=== PATIENT | female | born 2000 | race Caucasian/White ===

== ENCOUNTER 2022-05-26 02:42 | Emergency (ER) | payer OTHER ==
[2022-05-26] MEDS ORDERED: ACETAMINOPHEN 325 MG TABLET ONE (02:57)
[2022-05-26] MEDS ORDERED: NA CHLORIDE 0.9% 0 ML ONE (04:30)
--- NOTE | 2022-05-26 04:50 | ER ---
Nurse's Notes [facility] Name: Eloisa Farah Age: 21 yrs Sex: Female : 2000 Arrival Date: 05/26/2022 Time: 02:45 Bed 8 Private MD: Diagnosis: Viral infection, unspecified;Fever, unspecified;Diarrhea, unspecified Presentation: 05/26 03:12 Chief complaint: Patient states: she has had chills, fever, headache and diarrhea x 4 bb days with a "high heart rate". Coronavirus screen: chills, diarrhea, fever, headache, Client presents with at least one sign or symptom that may indicate coronavirus-19. Ebola Screen: No symptoms or risks identified at this time. Initial Sepsis Screen: Does the patient meet any 2 criteria? No. Patient's initial sepsis screen is negative. Does the patient have a suspected source of infection? No. Patient's initial sepsis screen is negative. Risk Assessment: Do you want to hurt yourself or someone else? Patient reports no desire to harm self or others. Onset of symptoms was May 22, 2022. 03:12 Method Of Arrival: Ambulatory bb 03:12 Acuity: ELIS 4 bb Triage Assessment: 03:14 Headache History: The patient has had previous headaches. General: Appears in no bb apparent distress. Behavior is calm, cooperative. Pain: Pain currently is 7 out of 10 on a pain scale. Pain began 4 days ago Also complains of no other associated symptoms. Neuro: Level of Consciousness is awake, alert, obeys commands, Oriented to person, place, time, situation. Cardiovascular: Capillary refill < 3 seconds Patient's skin is warm and dry. Respiratory: Respiratory effort is even, unlabored, Respiratory pattern is regular. GI: Reports diarrhea. Derm: Skin is pink, warm \\T\\ dry. Musculoskeletal: Circulation, motion, and sensation intact. 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 - Social history:: Smoking status: Patient denies any tobacco usage or history of. Screenin:15 Abuse screen: Denies threats or abuse. Nutritional screening: No deficits noted. bb Tuberculosis screening: Fall Risk None identified. Assessment: 03:15 Reassessment: No changes from previously documented assessment. see triage assessment. bb 04:33 Reassessment: Patient is alert, oriented x 3, equal unlabored respirations, skin bb warm/dry/pink. Vital Signs: 03:12 BP 115 / 72; Pulse 121; Resp 16 S; Temp 100.5(O); Pulse Ox 96% on R/A; Weight 56.25 kg bb (R); Height 5 ft. 1 in. (154.94 cm) (R); Pain 0/10; 04:33 BP 105 / 62; Pulse 90; Resp 16 S; Temp 98.4(O); Pulse Ox 98% on R/A; bb 03:12 Body Mass Index 23.43 (56.25 kg, 154.94 cm) bb ED Course: 02:45 Patient arrived in ED. ja2 03:12 Staci Holden, RN is Primary Nurse. bb 03:14 Triage completed. bb 03:14 Arm band placed on Patient placed in an exam room, on a stretcher, on pulse oximetry. bb Family accompanied patient. 03:15 Patient has correct armband on for positive identification. Call light in reach. Adult bb w/ patient. 03:17 Pilo Patino MD is Attending Physician. kdr 04:25 Primary Nurse role handed off by Staci Holden, RN tw5 04:25 Traci Valencia is Primary Nurse. tw5 05:08 No provider procedures requiring assistance completed. Patient did not have IV access as6 during this emergency room visit. Administered Medications: 02:58 Drug: Tylenol 650 mg Route: PO; bb 05:08 Follow up: Response: No adverse reaction as6 04:50 Not Given (Physician Discretion): NS 0.9% 1000 ml IV at 1 bolus Per protocol; 1000 mL as6 bolus 04:50 Not Given (Physician Discretion): NS 0.9% 1000 ml IV at 125 ml/hr continuous as6 05:01 Drug: Motrin (ibuprofen) 600 mg Route: PO; as6 05:08 Follow up: Response: No adverse reaction as6 Medication: 03:15 VIS not applicable for this client. bb Outcome: 04:49 Discharge ordered by . kdr 05:09 Discharged to home ambulatory. as6 05:09 Condition: stable 05:09 Discharge instructions given to patient, Instructed on discharge instructions, follow up and referral plans. medication usage, Demonstrated understanding of instructions, follow-up care, medications, Prescriptions given X 1. 05:09 Patient left the ED. as6 Signatures: Pilo Patino MD MD kdr Ballard, Brenda, RN RN Yuki Sandoval Traci Mcclendon [facility] Brandon Chopra RN RN as6 Corrections: (The following items were deleted from the chart) 03:15 03:14 Allergies: No Known Allergies; samantha singh 03:15 03:14 Home Meds: None; samantha singh
--- NOTE | 2022-05-26 04:50 | EDPHYS ---
Physician Documentation [facility] Name: Eloisa Farah Age: 21 yrs Sex: Female : 2000 Arrival Date: 05/26/2022 Time: 02:45 Bed 8 Private MD: ED Physician Pilo Patino HPI: 05/26 18:07 This 21 yrs old Female presents to ER via Ambulatory with complaints of Fever, High kdr Blood Pressure, Headache, Diarrhea. 18:08 Patient states that she has had fever and chills and a headache with diarrhea for the kdr last 4 days. She also feels that her heart rate has been elevated. On initial evaluation the patient is nontoxic-appearing. It was noted that her initial heart rate was 120. After the patient had been in her room in bed for a while her heart rate decreased to 85. That was without any specific intervention. Patient was subsequently moved to a different room and after ambulating there her heart rate remained stable.. Onset: The symptoms/episode began/occurred gradually, 4 day(s) ago. Severity of symptoms: At their worst the symptoms were mild in the emergency department the symptoms are unchanged. The patient has not experienced similar symptoms in the past. The patient has not recently seen a physician. Patient had called the nurse helpline and had been advised to come to the ED for possible sepsis test. Patient was focused on getting that specific test.. 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 - Social history:: Smoking status: Patient denies any tobacco usage or history of. ROS: 18:08 Constitutional: Negative for weight loss. kdr 18:08 Eyes: Negative for injury, pain, redness, and discharge, Neck: Negative for injury, pain, and swelling, Cardiovascular: Negative for chest pain, and edema. 18:08 Respiratory: Negative for shortness of breath, cough, wheezing, and pleuritic chest pain, Abdomen/GI: Negative for abdominal pain, nausea, vomiting, diarrhea, and constipation, Back: Negative for injury and pain, : Negative for injury, bleeding, discharge, and swelling, MS/Extremity: Negative for injury and deformity, Skin: Negative for injury, rash, and discoloration, Neuro: Negative for headache, weakness, numbness, tingling, and seizure activity. Psych: Negative for depression, anxiety, suicide ideation, homicidal ideation, and hallucinations, Allergy/Immunology: Negative for hives, rash, and allergies, Endocrine: Negative for neck swelling, polydipsia, polyuria, polyphagia, and marked weight changes, Hematologic/Lymphatic: Negative for swollen nodes, abnormal bleeding, and unusual bruising. 18:08 Constitutional: Positive for body aches, fatigue, fever, malaise, Negative for chills, weight loss. 18:08 Cardiovascular: Positive for palpitations, Negative for chest pain, edema, orthopnea, paroxysmal nocturnal dyspnea. Exam: 18:08 Constitutional: This is a well developed, well nourished patient who is awake, alert, kdr and in no acute distress. Head/Face: Normocephalic, atraumatic. Eyes: Pupils equal round and reactive to light, extra-ocular motions intact. Lids and lashes normal. Conjunctiva and sclera are non-icteric and not injected. Cornea within normal limits. Periorbital areas with no swelling, redness, or edema. Neck: Trachea midline, no thyromegaly or masses palpated, and no cervical lymphadenopathy. Supple, full range of motion without nuchal rigidity, or vertebral point tenderness. No Meningismus. Chest/axilla: Normal chest wall appearance and motion. Nontender with no deformity. No lesions are appreciated. Cardiovascular: Regular rate and rhythm with a normal S1 and S2. No gallops, murmurs, or rubs. Normal PMI, no JVD. No pulse deficits. Respiratory: Lungs have equal breath sounds bilaterally, clear to auscultation and percussion. No rales, rhonchi or wheezes noted. No increased work of breathing, no retractions or nasal flaring. Abdomen/GI: Soft, non-tender, with normal bowel sounds. No distension or tympany. No guarding or rebound. No evidence of tenderness throughout. Back: No spinal tenderness. No costovertebral tenderness. Full range of motion. Skin: Warm, dry with normal turgor. Normal color with no rashes, no lesions, and no evidence of cellulitis. MS/ Extremity: Pulses equal, no cyanosis. Neurovascular intact. Full, normal range of motion. Neuro: Awake and alert, GCS 15, oriented to person, place, time, and situation. Cranial nerves II-XII grossly intact. Motor strength 5/5 in all extremities. Sensory grossly intact. Cerebellar exam normal. Normal gait. Psych: Awake, alert, with orientation to person, place and time. Behavior, mood, and affect are within normal limits. Vital Signs: 03:12 BP 115 / 72; Pulse 121; Resp 16 S; Temp 100.5(O); Pulse Ox 96% on R/A; Weight 56.25 kg bb (R); Height 5 ft. 1 in. (154.94 cm) (R); Pain 0/10; 04:33 BP 105 / 62; Pulse 90; Resp 16 S; Temp 98.4(O); Pulse Ox 98% on R/A; bb 03:12 Body Mass Index 23.43 (56.25 kg, 154.94 cm) bb MDM: 04:49 Patient medically screened. kdr 18:08 Data reviewed: vital signs, nurses notes, lab test result(s). Counseling: I had a kdr detailed discussion with the patient and/or guardian regarding: the historical points, exam findings, and any diagnostic results supporting the discharge/admit diagnosis, lab results, the need for outpatient follow up. ED course: Patient continues to be concerned about possible sepsis. I educated her as to the signs and symptoms specifically of sepsis as well as the difference between her current presentation and typical septic presentation. She was nontoxic and not requiring any acute intervention in the ED.. 05/26 02:58 Order name: Flu; Complete Time: 04:09 bb 05/26 02:58 Order name: COVID-19 SARS RT PCR (Document "Date of Onset" if Symptomatic); Complete bb Time: 04:09 Administered Medications: :58 Drug: Tylenol 650 mg Route: PO; bb 05:08 Follow up: Response: No adverse reaction as6 04:50 Not Given (Physician Discretion): NS 0.9% 1000 ml IV at 1 bolus Per protocol; 1000 mL as6 bolus 04:50 Not Given (Physician Discretion): NS 0.9% 1000 ml IV at 125 ml/hr continuous as6 05:01 Drug: Motrin (ibuprofen) 600 mg Route: PO; as6 05:08 Follow up: Response: No adverse reaction as6 Disposition Summary: 05/26/22 04:49 Discharge Ordered Location: Home kdr Problem: new kdr Symptoms: have improved kdr Condition: Stable kdr Diagnosis - Viral infection, unspecified kdr - Fever, unspecified kdr - Diarrhea, unspecified kdr Followup: kdr - With: Private Physician - When: 2 - 3 days - Reason: If symptoms return, Further diagnostic work-up, Recheck today's complaints, Continuance of care, Re-evaluation by your physician Discharge Instructions: - Discharge Summary Sheet kdr - Fever, Adult kdr - Diarrhea, Adult, [id number] kdr - Viral Respiratory Infection, [id number] kdr Forms: - Medication Reconciliation Form kdr - Thank You Letter kdr Prescriptions: - Ibuprofen 600 mg Oral Tablet - take 1 tablet by ORAL route every 6 hours As needed take with food; 30 tablet; kdr Refills: 0, Product Selection Permitted Signatures: Dispatcher [employer] EDPilo Lee MD MD kdr Ballard, Brenda, RN RN bb Slawson, Ashby, RN RN as6 Corrections: (The following items were deleted from the chart) 03:15 03:14 Allergies: No Known Allergies; samantha singh 03:15 03:14 Home Meds: None; samantha singh
[2022-05-26] MEDS ORDERED: IBUPROFEN 200 MG TAB PO ONE (04:59)
[2022-05-26] MEDS ORDERED: IBUPROFEN 400 MG TAB ONE (05:00)
[2022-05-26 05:25] VITALS: BP 105/62; TEMP 98.4; O2SAT 98
== END 2022-05-26 05:09 | disposition home or self-care (01) ==
LOC: ER 02:42
DX: B34.9 Viral infection, unspecified (principal); R19.7 Diarrhea, unspecified; Z20.822 Contact with and (suspected) exposure to COVID-19
CPT/HCPCS: 87804 ×2; 99283; U0003; J7030